=== PATIENT | male | born 1985 | race African-American/Black ===

== ENCOUNTER 2019-09-06 12:34 | Outpatient (CLI) | payer OTHER ==
[2019-09-06 16:32] LABS: #Basophils 0.1 thou/uL (0.0-0.2); #Eosinphils 0.1 thou/uL (0.0-0.7); #Lymphocytes 1.4 thou/uL (1.20-3.40); #Monocytes 0.3 thou/uL (0.11-0.59); #Neutrophils 3.2 thou/uL (1.40-6.50); %Basophils 1.2 % (0.0-1.0); %Eosinophils 1.4 % (0.0-10.0); %Lymphocytes 27.7 % (21.0-51.0); %Monocytes 5.9 % (0.0-10.0); %Neutrophils 63.8 % (42.0-75.0); Hemoglobin 15.5 g/dL (14.0-18.0); Mean Corpuscular HGB CONC 31.5 g/dL (32.0-36.0); Mean Corpuscular Hemoglobin 28.4 pg (27.0-31.0); Mean Corpuscular Volume 90.2 fL (78.0-98.0); Mean Platelet Volume 8.9 fL (7.4-10.4); Platelet Count 187 thou/uL (130-400); RBC Distribution Width 13.3 % (11.5-14.5); Red Blood Cell (RBC) Count 5.44 mill/uL (4.70-6.10)
[2019-09-07 14:02] LABS: SARS-CoV-2 MS2 Positive; SARS-CoV-2 N Gene Negative; SARS-CoV-2 S Gene Negative; SARS-CoV-2 by NAA Not Detected (NotDetected); SARS-CoV-2 orf1ab Negative
== END 2019-09-06 12:35 | disposition home or self-care (01) ==
LOC: LABBT 12:34
PROVIDERS: ATTEND Orthopaedic Surgery Hand Surgery
DX: Z01.812 Encounter for preprocedural laboratory examination (principal); Z11.59 Encounter for screening for other viral diseases; S62.604A Fracture of unspecified phalanx of right ring finger, initial encounter for closed fracture
CPT/HCPCS: 85025; 87635; U0003

== ENCOUNTER 2019-09-11 12:54 | Day surgery (SDC) | payer OTHER ==
[2019-09-06 16:38] VITALS: BMI 21.7
[~2019-09-11 12:54] MED LIST: Dexamethasone 20 MG/5 ML VIAL ONE; EPHEDRINE 25 MG/5 ML SYRINGE ONE; Lidocaine 1% PF 5 ML VIAL ONE; Ondansetron PF 4 MG/2 ML Vial ONE; PROPOFOL 200 MG/20 ML VIAL ONE
[2019-09-11] MEDS ORDERED: Midazolam HCl 2 mg/2 ml Vial ONE ×2 (14:25→16:23)
[2019-09-11] MEDS ORDERED: Bacitracin Zinc Ointment 30 gm TUBE ONE (15:50)
[2019-09-11] MEDS ORDERED: Fentanyl 100 MCG/2 ML VIAL ONE ×2 (15:50→18:46)
[2019-09-11] MEDS ORDERED: Bupivacaine PF 0.5% 30 ML VIAL ONE (15:50)
[2019-09-11] MEDS ORDERED: Sodium Chloride 0.9% 10 ML ONE (15:50)
--- NOTE | 2019-09-11 18:33 | RAD ---
RIGHT FINGER TWO VIEWS: History: ORIF right finger FINDINGS: There is pinning through the DIP joint. Two other pins are seen through the base of the distal base a nd shaft of the distal phalanx. Another long pin is seen extending through the proximal and distal in terphalangeal joints. IMPRESSION: As above. POS: [facility]
[2019-09-11] MEDS ORDERED: Ketorolac Tromethamine 30 MG/ML VIAL ONE (18:46)
--- NOTE | 2019-09-12 13:04 | OP ---
DATE OF PROCEDURE: 09/11/2019 PREOPERATIVE DIAGNOSIS: Right ring finger extensor tendon stretch with displaced P1 mallet fracture, right ring finger. POSTOPERATIVE DIAGNOSIS: Right ring finger extensor tendon stretch with displaced P1 mallet fracture, right ring finger with joint contracture volar and adhesions of the extensor tendon consistent with a subacute or greater than 4-week-old injury. 6 mm wide by 2.5 mm in height fragment. PROCEDURES PERFORMED: 1. Extensor tenolysis, right ring finger. 2. Right ring finger joint palmar capsulotomy release through the open joint. 3. Open reduction internal fixation of mallet finger fracture to include triangular K-wire configuration as well as the button Prospect suture through the bone technique. 4. Pinning, distal phalangeal joint. 5. C-arm supervision. 6. Extensor tendon repair zone 1. TOURNIQUET TIME: 64 minutes. C-arm supervision, yes. A 5 mm retracted fragment with extensive adhesions and -15 degrees joint extension even passive with the finger . INDICATIONS FOR PROCEDURE: Patient with autism, who came to clinic with an obvious 4-week-old mallet fracture that could not reduce, could not achieve full extension and was already 4 weeks old at the time in my office. For this reason, operative intervention was indicated. DESCRIPTION OF PROCEDURE: After successful general endotracheal anesthesia, the limb prepped and draped. Patient was then given 10 mL 0.5% Marcaine at metacarpophalangeal joint level after a time-out was done. We then attempted to do a closed reduction and we could not even achieve full extension because of the tightness of the palmar capsule and thus we could not reduce or close. We inflated the tourniquet after exsanguination of the limb to 250 mmHg pressure. A double box shaped opening was made or H-type incision (Kleinert H-type incision). We then were able to extend the incision distal and proximal until we had finally achieved exposure. We then used the C-arm to identify where the fragment was and we elevated the extensor mechanism just 1 mm distal to this, so we could improve the fragment without from the tendon. The tendon had a very thin area around it that was attenuated, and retracted back almost 3 to 4 mm and was markedly adhesed to the middle phalanx head, neck, and shaft. We had to do a tenolysis far back to almost the central slip to free it, so it could be advanced. Then, in order to get the joint to extend the 15 degrees passively, we had to release the palmar capsule using a curved right angle in the midline in order to achieve 0 degree extension passively, we were able to do this. Next, once we achieved this, we pinned the joint with a 0.045 K-wire in neutral position in frontal sagittal plane and the wires stay fairly in the midline. There was an area where we found the bone, trying to adhere into the trough where it came from, but it had not done yet, so we elevated this up and we did the tenolysis and had a [id number], [id number] repair, and [id number] with the fracture fixation. Once we deepened the trough, we then curetted gently the fragment, it was very thin, and then finished the Karolyn-type weave on both sides of the fragment. We then drilled with Aj needles with power drill through the bone of the other side at about 30-degree angle to help slide the bone piece into the small defect. We held it here, then we cross pinned it. We put a triangular box type pressure configuration to achieve nearly anatomic position while holding the K-wire. The Prolene suture through a button with Adaptic without bacitracin between the button and the skin. We then held the joint in neutral position and then a 45-degree flexion of the PIP where we then tied the button with the wires in place with the Prolene suture over the button x2 knots indicative of the achievement. There was nearly anatomic position of the joint and the fracture. We then cut the wires, flushed with the extensor mechanism on the dorsal, flushed with the fracture fragment on the palmar side, and the patient had 1-second refill and a pink digit. Plan will be to very evaluate the patient before make further steps and the patient left the operating room with the tourniquet deflated, hemostasis obtained. Incision was closed with interrupted 4-0 nylon. No evidence of anesthetic or operative complication. Job ID: [id number]
== END 2019-09-11 20:05 | disposition home or self-care (01) ==
LOC: SDC 12:54
PROVIDERS: ATTEND Orthopaedic Surgery Hand Surgery
PROC: 0PST04Z Reposition Right Finger Phalanx with Internal Fixation Device, Open Approach (ICD-10-PCS; principal; 2019-09-11)
DX: S62.634A Displaced fracture of distal phalanx of right ring finger, initial encounter for closed fracture (principal); M20.011 Mallet finger of right finger(s); I10 Essential (primary) hypertension; F84.0 Autistic disorder; F79 Unspecified intellectual disabilities; X58.XXXA Exposure to other specified factors, initial encounter
CPT/HCPCS: 76000; J0690; J1100; J1885; J2250; J2405; J2704; J3010; J3490; S0020

== ENCOUNTER 2019-10-24 07:01 | Outpatient (CLI) | payer OTHER ==
[2019-10-25 12:32] LABS: SARS-CoV-2 MS2 Positive; SARS-CoV-2 N Gene Negative; SARS-CoV-2 S Gene Negative; SARS-CoV-2 by NAA Not Detected (NotDetected); SARS-CoV-2 orf1ab Negative
== END 2019-10-24 07:02 | disposition home or self-care (01) ==
LOC: LABBT 07:01
PROVIDERS: ATTEND Orthopaedic Surgery Hand Surgery
DX: T84.84XA Pain due to internal orthopedic prosthetic devices, implants and grafts, initial encounter (principal); Z20.828 Contact with and (suspected) exposure to other viral communicable diseases
CPT/HCPCS: 87635; U0003

== ENCOUNTER 2019-10-27 06:09 | Day surgery (SDC) | payer OTHER ==
[2019-10-25 11:46] VITALS: BMI 21.1
[2019-10-27] MEDS ORDERED: Betamet Acet/Betamet Na Ph 30 MG/5 ML VIAL ONE (06:20)
[2019-10-27] MEDS ORDERED: Bupivacaine PF 0.5% 30 ML VIAL ONE (06:20)
[2019-10-27] MEDS ORDERED: Sodium Chloride 0.9% 10 ML ONE (06:20)
[2019-10-27] MEDS ORDERED: Bacitracin Zinc Ointment 30 gm TUBE ONE (06:20)
[2019-10-27] MEDS ORDERED: Fentanyl 100 MCG/2 ML VIAL ONE ×2 (06:42→08:14)
[2019-10-27] MEDS ORDERED: Midazolam HCl 2 mg/2 ml Vial ONE (06:42)
[2019-10-27] MEDS ORDERED: Ketorolac Tromethamine 30 MG/ML VIAL ONE (08:11)
[2019-10-27] MEDS ORDERED: EPHEDRINE 25 MG/5 ML SYRINGE ONE (11:46)
[2019-10-27] MEDS ORDERED: PROPOFOL 200 MG/20 ML VIAL ONE (11:46)
[2019-10-27] MEDS ORDERED: Lidocaine 1% PF 5 ML VIAL ONE (11:46)
[2019-10-27] MEDS ORDERED: Ondansetron PF 4 MG/2 ML Vial ONE (11:46)
--- NOTE | 2019-10-27 17:27 | RAD ---
XR Hand Rt 2 View History: Hardware removal Comparison: Radiograph October 19, 2019 Findings: Single spot images obtained with pins through the distal phalanx index finger. Impression: Fluoroscopy for surgical use. Total fluoroscopy time: 5 seconds
--- NOTE | 2019-10-30 13:21 | OP ---
DATE OF PROCEDURE: 10/27/2019 PREOPERATIVE DIAGNOSIS: Painful deep K-wire and suture, right ring finger after previous mallet finger fracture and tendon injury type repairs. PROCEDURE: Removal of K-wire under C-arm supervision, right ring finger. SPECIMEN REMOVED: K-wire. ESTIMATED BLOOD LOSS: 10 mL. TOURNIQUET TIME: None. DESCRIPTION OF PROCEDURE: After successful anesthesia, the patient had limb prepped and draped. Time-out was performed. Patient was taken to operating room because of his special needs could not begin to get him come in and remove the K-wire or sutures in clinic. We prepped and draped, removed the sutures. Then, the C-arm brought into the field, visualized the fracture and removed the K-wire. Actually, the joint did not droop and there was no evidence of separation of the fracture fragment or the remaining two K-wires that were holding the fracture. The joint was now free. We placed him in a sterile dressing with a splint out to the level of the tip of the nail to protect the repair still and he left the operating room without evidence of anesthetic or operative complication. Job ID: [id number]
== END 2019-10-27 09:15 | disposition home or self-care (01) ==
LOC: SDC 06:09
PROVIDERS: ATTEND Orthopaedic Surgery Hand Surgery
PROC: 0LPX0JZ Removal of Synthetic Substitute from Upper Tendon, Open Approach (ICD-10-PCS; principal; 2019-10-27)
DX: T84.84XA Pain due to internal orthopedic prosthetic devices, implants and grafts, initial encounter (principal); I10 Essential (primary) hypertension; F79 Unspecified intellectual disabilities; F17.200 Nicotine dependence, unspecified, uncomplicated
CPT/HCPCS: 76000; J0690; J0702; J1885; J2250; J2405; J2704; J3010; J3490; S0020

== ENCOUNTER 2021-02-06 10:40 | Outpatient (CLI) | payer OTHER ==
[2021-02-07 11:35] LABS: SARS-CoV-2 PCR by NAA Not Detected (NotDetected)
== END 2021-02-06 10:41 | disposition home or self-care (01) ==
LOC: LABBT 10:40
PROVIDERS: ATTEND Orthopaedic Surgery Hand Surgery
DX: Z01.812 Encounter for preprocedural laboratory examination (principal); T84.84XA Pain due to internal orthopedic prosthetic devices, implants and grafts, initial encounter; Z20.822 Contact with and (suspected) exposure to COVID-19
CPT/HCPCS: U0003; U0005

== ENCOUNTER 2021-02-10 11:07 | Day surgery (SDC) | payer OTHER ==
[2021-02-05 14:26] VITALS: BMI 21.1
[2021-02-10] MEDS ORDERED: ceFAZolin 2 GM/DEX 5% 100 ML BAG ONE (11:56)
[2021-02-10] MEDS ORDERED: Fentanyl 100 MCG/2 ML VIAL ONE ×2 (13:35→15:13)
[2021-02-10] MEDS ORDERED: Neomycin-Polymyxin 1 ML AMP ONE (13:54)
[2021-02-10] MEDS ORDERED: Bacitracin Zinc Ointment 30 gm TUBE ONE (13:54)
[2021-02-10] MEDS ORDERED: Bupivacaine PF 0.5% 30 ML VIAL ONE (13:54)
[2021-02-10] MEDS ORDERED: Thrombin 5000 UNITS/5 ML VIAL ONE (13:54)
[2021-02-10] MEDS ORDERED: PROPOFOL 200 MG/20 ML VIAL ONE (14:08)
[2021-02-10] MEDS ORDERED: Ondansetron PF 4 MG/2 ML Vial ONE (14:08)
[2021-02-10] MEDS ORDERED: Lidocaine 1% PF 5 ML VIAL ONE (14:08)
[2021-02-10] MEDS ORDERED: Dexamethasone 20 MG/5 ML VIAL ONE (14:08)
[2021-02-10] MEDS ORDERED: Ketorolac Tromethamine 30 MG/ML VIAL ONE ×2 (14:08→15:33)
== END 2021-02-10 16:21 | disposition home or self-care (01) ==
LOC: SDC 11:07
PROVIDERS: ATTEND Orthopaedic Surgery Hand Surgery
PROC: 0RPW0JZ Removal of Synthetic Substitute from Right Finger Phalangeal Joint, Open Approach (ICD-10-PCS; principal; 2021-02-10)
DX: T84.84XA Pain due to internal orthopedic prosthetic devices, implants and grafts, initial encounter (principal); I10 Essential (primary) hypertension; F79 Unspecified intellectual disabilities; F17.200 Nicotine dependence, unspecified, uncomplicated
CPT/HCPCS: 76000; J1100; J1885; J2405; J2704; J3010; S0020